=== PATIENT | female | born 2000 | race Caucasian/White ===

== ENCOUNTER 2022-02-16 23:33 | Emergency (ER) | payer SELFPAY ==
[2022-02-16 23:45] VITALS: BP 108/72; PULSE 94; RESP 18; TEMP 99.4; BMI 24.2
[2022-02-17 02:50] LABS: THROAT:GRP A STREP NOT DETECTED (NOTDETECTED)
[2022-02-17] MEDS ORDERED: ACETAMINOPHEN 500 MG TABLET (FP) PO ONE (03:21)
[2022-02-17] MEDS ORDERED: AMOXICILLIN 500 MG CAPSULE (FP) PO ONE (03:26)
[2022-02-17] MEDS ORDERED: AMOX TR/POT CLAV 875MG/125MG TABLETS (FP) ONE (03:27)
[2022-02-17] MEDS ORDERED: AMOX TR/POT CLAV 875MG/125MG TABLETS (FP) PO ONE (03:45)
== END 2022-02-17 03:33 | disposition home or self-care (01) ==
LOC: JER 23:33
DX: J09.X2 Influenza due to identified novel influenza A virus with other respiratory manifestations (principal); H66.91 Otitis media, unspecified, right ear
CPT/HCPCS: 0241U-QW; 87651; 99283-25

== ENCOUNTER 2022-07-28 19:26 | Emergency (ER) | payer OTHER ==
[2022-07-28 19:44] VITALS: BP 116/46; PULSE 58; RESP 18; TEMP 98.1; BMI 24.2
[2022-07-28] MEDS ORDERED: IBUPROFEN 600 MG TABLET (FP) PO ONE ×2 (20:32→20:39)
[2022-07-28 21:00] LABS: BASO % 0.7 % (0-2.0); EOS % 1.3 % (0-4.5); HEMATOCRIT 35.2 % (32.4-45.2); HEMOGLOBIN 11.9 GM/dL (10.7-15.3); LYMPH % 23.2 % (8-40); MCH 30.1 pg (25.7-33.7); MCHC 33.9 g/dl (32.0-36.0); MEAN CELL VOLUME 88.9 fl (80-96); MEAN PLT VOLUME 7.2 fl (7.5-11.1); MONO % 8.7 % (3.8-10.2); NEUT % 66.1 % (42.8-82.8); PLATELET COUNT 395 10^3/uL (134-434); RBC 3.96 M/mm3 (3.60-5.2); RDW 14.2 % (11.6-15.6); WHITE BLOOD COUNT 12.9 K/mm3 (4.0-10.0)
[2022-07-28 21:11] LABS: POTASSIUM 4.3 mmol/L (3.5-5.1)
[2022-07-28 21:13] LABS: ALBUMIN 3.9 g/dl (3.4-5.0); BLOOD UREA NITROGEN 15.7 mg/dL (7-18); CALCIUM 9.4 mg/dL (8.5-10.1)
[2022-07-28 21:16] LABS: CREATININE 0.7 mg/dL (0.55-1.3)
[2022-07-28 21:18] LABS: BILIRUBIN,TOTAL 0.3 mg/dL (0.2-1); TOT PROT 7.2 g/dl (6.4-8.2)
== END 2022-07-28 21:44 | disposition home or self-care (01) ==
LOC: JERFT 19:26
DX: R07.9 Chest pain, unspecified (principal)
CPT/HCPCS: 36415; 71046-TC-FY; 80053; 84484; 84703; 85025; 85379; 86618; 93005; 93010; 99285-25